=== PATIENT | male | born 1965 | race Asian ===

== ENCOUNTER → 2017-03-13 | Day surgery (SDC) | payer BC ==
[~2017-03-13] MED LIST: LIPITOR20 MG PO; [UNRECOGNIZED DRUG - REMARK]
--- NOTE | ~2017-03-13 | OR ---
Unit #: [id number] #: [id number] Patient: COURT SHEETS [id number] [address] [place], [place] [address] [id number] MR#: [id number] NAME: [facility] SHEETS ROOM: Date of Procedure: 03/13/2017 Admission Date: 03/13/2017 Surgeon: Kodak Rose M.D. : 1965 Attending Physician: Kodak Rose M.D. OPERATIVE REPORT PRIMARY CARE PHYSICIAN Yuridia Gunter M.D. PREOPERATIVE DIAGNOSIS Colorectal cancer screening in an average-risk patient. PROCEDURE PERFORMED Colonoscopy up to cecum with excellent preparation and good visualization. POSTOPERATIVE DIAGNOSIS Completely normal examination up to cecum. The patient did not have any polyps nor any diverticula or hemorrhoids. RECOMMENDATIONS Repeat colonoscopy in 10 years. SEDATION USED MAC. DESCRIPTION OF PROCEDURE Following detailed explanation of the potential risks and complications of a colonoscopy, namely perforation, bleeding, and complications related to sedation, the patient was brought to GI lab and laid in the left lateral decubitus position. A digital rectal examination was performed, which was normal. Lubricated tip of the Olympus videocolonoscope was inserted through the anus and advanced under direct vision. The scope was advanced and passed up to sigmoid into descending colon. No diverticula were noticed in this area. The scope was then navigated all the way up to cecum with visualization of the ileocecal valve and the appendiceal orifice. Preparation was excellent with good visualization and photodocumentation was obtained. Successive segments of the colonic mucosa were examined upon withdrawal and appeared unremarkable. There being no polyps, mass lesions, AVMs, or diverticula. The patient did not have any hemorrhoids at anal verge. The scope was withdrawn. The patient returned to the recovery area. He tolerated the procedure without any postprocedure complications. Dictated by... Kodak Rose M.D. Unit #: [id number] #: [id number] Patient: COURT SHEETS AK/modl TD: 03/13/2017 23:15 JOB #: [id number] CC: Yuridia Gunter M.D. OPERATIVE REPORT Page 1 of 1 X Kodak Rose MD PROCEDURE OPERATIVE NOTE
== END | disposition home or self-care (01) ==
LOC: COPS 09:38
DX: Z12.11 Encounter for screening for malignant neoplasm of colon (principal); E78.5 Hyperlipidemia, unspecified; Z79.899 Other long term (current) drug therapy